=== PATIENT | female | born 1975 | race Caucasian/White ===

== ENCOUNTER 2016-12-11 18:20 | Emergency (ER) | payer BC ==
[~2016-12-11] VITALS: Ht 170.2 cm; Wt 65.8 kg
--- NOTE | 2016-12-11 19:05 | ED Lower Extremity ---
General Chief Complaint: Lower Extremity Stated Complaint: R FOOT PAIN FROM FALL Source: patient Exam Limitations: no limitations History of Present Illness Time seen by provider: 19:04 Initial Comments To ER with right ankle pain after she fell off of her porch at home twisting her ankle on the way down and caught in the bushes. She's been unable to bear weight on this since this happened. Pain is only ankle. There is no pain in the foot or in the knee. Onset: just prior to arrival Severity: moderate Pain/Injury Location: right ankle Method of Injury: fell, twisted Modifying Factors: Worse With Movement Allergies and Home Medications Allergies Coded Allergies: Morphine (Unverified Allergy, Mild, 12/06/08) Home Medications Thyroid,Pork 130 Mg Tablet, (Reported) Constitutional: see HPI EENTM: see HPI Respiratory: no symptoms reported Cardiovascular: no symptoms reported Genitourinary: no symptoms reported Musculoskeletal: see HPI Skin: no symptoms reported Psychiatric/Neurological: No Symptoms Reported Past Oguqdsf-Yvmcbq-Pnpfll Hx Patient Social History Recent Foreign Travel: No Contact w/Someone Who Travel: No Reproductive System Hx Reproductive Disorders: No Physical Exam Vital Signs Vital Sign - Last 12Hours 12/11/16 18:55 Temp 97.0 Pulse 95 Resp 20 B/P (MAP) 121/88 Pulse Ox 100 O2 Delivery Room Air Capillary Refill : General Appearance: WD/WN, no apparent distress HEENT: PERRL/EOMI, normal ENT inspection Neck: non-tender, full range of motion Respiratory: no respiratory distress, no accessory muscle use Hips: bilateral hip non-tender, bilateral hip normal inspection, bilateral hip normal range of motion Legs: bilateral leg non-tender, bilateral leg normal inspection, bilateral leg normal range of motion Knees: bilateral knee non-tender, bilateral knee normal inspection, bilateral knee normal range of motion Ankles: right ankle pain, right ankle soft tissue tenderness, right ankle swelling Feet: bilateral foot non-tender, bilateral foot normal inspection, bilateral foot normal range of motion Neurologic/Psychiatric: alert, normal mood/affect, oriented x 3 Skin: normal color, warm/dry Comments Distally she is neurovascularly intact Progress/Results/Core Measures Results/Orders My Orders Orders - WADE CHADWICK APRN Ankle, Right, 3 Views (12/11/16 19:08) Vital Signs/I&O Vital Sign - Last 12Hours 12/11/16 18:55 Temp 97.0 Pulse 95 Resp 20 B/P (MAP) 121/88 Pulse Ox 100 O2 Delivery Room Air Departure Impression Impression: Primary Impression: Ankle sprain Qualified Codes: S93.401A - Sprain of unspecified ligament of right ankle, initial encounter Disposition: 01 HOME, SELF-CARE Condition: Stable Departure-Patient Inst. Decision time for Depature: 19:27 Referrals: GEOVANNA VIDAL DO (PCP) Primary Care Physician CADE DEAN DO (Family) Primary Care Physician Patient Instructions: Ankle Sprain (DC) Add. Discharge Instructions: 1. Rest, limit weightbearing. It hurts to bear weight and use crutches when walking. When you feel as though your able to bear weight on your left foot without pain in the ankle and you may do so. Expect some swelling and bruising over the next 24-48 hours. Elevating the ankle, use of an tito wrap, and Ice pack will help with this. If pain persists beyond 1.5-2 weeks then follow up with Dr Vidal to discusse an MRI to further evaluate the ankle. Take tylenol and motrin for pain and return to ER for any concerning symptoms. Wear the tito wrap for a minimum of 48 hours and use an ice pack at 30 minute intervals for that same duration. All discharge instructions reviewed with patient and/or family. Voiced understanding. Copy Copies To 1: GEOVANNA VIDAL PETER J APRN Dec 11, 2016 19:05
[2016-12-11] MEDS ORDERED: THYR130T5 (19:11)
--- NOTE | 2016-12-11 19:14 | Diagnostic Imaging Report ---
INDICATION: Fall. FINDINGS: There is mild soft tissue swelling of the lateral malleolus. Ankle mortise is in good alignment. Articulating surfaces are smooth. Joint spaces are well-preserved. There are no fractures. IMPRESSION: Mild soft tissue swelling with no bony abnormality. Dictated by: Dictated on workstation # [id number]
[2016-12-11 19:50] VITALS: BP 121/88
== END 2016-12-11 19:50 | disposition home or self-care (01) ==
LOC: EDUNIT# 18:20 → ER 18:22
DX: S93.401A Sprain of unspecified ligament of right ankle, initial encounter (principal); W13.9XXA Fall from, out of or through building, not otherwise specified, initial encounter; X50.0XXA Overexertion from strenuous movement or load, initial encounter; Y92.008 Other place in unspecified non-institutional (private) residence as the place of occurrence of the external cause
CPT/HCPCS: 73610; 99283

== ENCOUNTER 2017-01-11 18:41 | Observation (INO) | payer BC ==
[~2017-01-11] VITALS: Ht 170.2 cm; Wt 74.4 kg
[~2017-01-11 18:41] MED LIST: THYR130T5 PO
[2017-01-11] MEDS ORDERED: NS IV 1000 ML 1,000 ML IV ONE ×3 (19:16→21:08)
[2017-01-11] MEDS ORDERED: KETOROLAC 30 MG/ML VIAL IVP STA (19:16)
--- NOTE | 2017-01-11 19:26 | ED General ---
General Chief Complaint: Fever-Adult/Adol Stated Complaint: FEVER Nursing Triage Note: PT HERE WITH C/O FEVER, N/V/ FOR 2 DAYS. FEVERS OF 102-103, NO URINE OUTPUT FOR 22 HOURS, PT REPORTS TRAVELING OVER 1600 MILES THIS WEEK IN A CAR. Nursing Sepsis Screen: Possible Sepsis Risk Source of Information: Patient Exam Limitations: No Limitations History of Present Illness Time Seen by Provider: 19:11 Initial Comments Here with report of fever with nausea and vomiting over the last 24-48 hours. States that she has not been him to keep anything down. She has not urinated since last night. Has had a lot of travel this week. Within the last 2 weeks has been out of the country as well. She has not had her flu shot this year. Denies specific pain but does complain of generalized body aches with the fever. She was unable to keep Tylenol down tonight. Denies diarrhea. Timing/Duration: 1-2 Days Severity: Moderate Associated Systoms: No Chest Pain, Cough (mild intermittent), Fever/Chills, No Headaches, Nausea/Vomiting, No Shortness of Air, Weakness Allergies and Home Medications Allergies Coded Allergies: Morphine (Unverified Allergy, Mild, 12/06/08) Home Medications Thyroid,Pork 130 Mg Tablet, (Reported) Constitutional: see HPI, chills, fever EENTM: no symptoms reported Respiratory: cough, No short of breath Cardiovascular: no symptoms reported Gastrointestinal: diarrhea, nausea, vomiting Genitourinary: decreased output, No pain : No LMP: Jan 06, 2017 Musculoskeletal: muscle pain, muscle weakness Skin: no symptoms reported All Other Systems Reviewed Negative Unless Noted: Yes Past Jitymep-Wnuybs-Gnpzfl Hx Patient Social History Alcohol Use: Denies Use Recreational Drug Use: No Smoking Status: Never a Smoker 2nd Hand Smoke Exposure: No Recent Foreign Travel: No Contact w/Someone Who Travel: No Recent Infectious Disease Expo: No Recent Hopitalizations: No Seasonal Allergies Seasonal Allergies: No Surgeries History of Surgeries: Yes (arm fx) Surgeries: Adenoidectomy, Gallbladder, Orthopedic, Tonsillectomy Respiratory History of Respiratory Disorde: No Cardiovascular History of Cardiac Disorders: No Neurological History of Neurological Disord: No Reproductive System Hx Reproductive Disorders: No Genitourinary History of Genitourinary Disor: No Gastrointestinal History of Gastrointestinal Di: No Musculoskeletal History of Musculoskeletal Dis: No Endocrine History of Endocrine Disorders: Yes Endocrine Disorders: Hypothyroidsim HEENT History of HEENT Disorders: No Cancer History of Cancer: No Psychosocial History of Psychiatric Problem: No Blood Transfusions History of Blood Disorders: No Reviewed Nursing Assessment Reviewed/Agree w Nursing PMH: Yes Family Medical History Significant Family History: No Pertinent Family Hx Physical Exam-Suspected Sepsis Physical Exam Vital Signs Vital Sign - Last 12Hours 01/11/17 18:59 Temp 98.8 Pulse 110 Resp 16 B/P (MAP) 123/79 Pulse Ox 98 O2 Delivery Room Air Capillary Refill : Less Than 3 Seconds Blood Pressure Mean: 94 General Appearance: No Apparent Distress, WD/WN HEENT: PERRL/EOMI, Pharynx Normal Neck: Non Tender, Supple Respiratory: Lungs Clear, Normal Breath Sounds Cardiovascular: No Murmur, Tachycardia Gastrointestinal: Non Tender, Soft Back: Normal Inspection, No CVA Tenderness, No Vertebral Tenderness Extremity: Normal Range of Motion, Non Tender Neurologic/Psychiatric: Alert, Oriented x3 Skin: normal color, warm/dry Focused Exam Evaluation Lactate Level Laboratory Tests 01/11/17 20:05: Lactic Acid Level 1.27 Lactic Acid Level Laboratory Tests Test 01/11/17 20:05 Lactic Acid Level 1.27 MMOL/L (0.50-2.00) Progress/Results/Core Measures Suspected Sepsis Recent Fever Within 48 Hours: Yes Infection Criteria Present: Suspected New Infection New/Unexplained Altered Menta: No Sepsis Screen: Possible Sepsis Risk Sepsis Diagnosis: SIRS Temperature:98.8 Pulse: 110 Respiratory Rate: 16 Laboratory Tests 01/11/17 19:25: White Blood Count 8.9 Blood Pressure 123 /79 Mean: 94 Laboratory Tests 01/11/17 20:05: Lactic Acid Level 1.27 Laboratory Tests 01/11/17 19:25: Creatinine 0.77, Platelet Count 240, Total Bilirubin 0.7 01/11/17 20:05: INR Comment 0.9 Results/Orders Lab Results Laboratory Tests Test 01/11/17 19:25 01/11/17 20:05 01/11/17 21:50 Range/Units White Blood Count 8.9 4.3-11.0 10^3/uL Red Blood Count 4.92 4.35-5.85 10^6/uL Hemoglobin 14.8 11.5-16.0 G/DL Hematocrit 43 35-52 % Mean Corpuscular Volume 87 80-99 FL Mean Corpuscular Hemoglobin 30 25-34 PG Mean Corpuscular Hemoglobin Concent 35 32-36 G/DL Red Cell Distribution Width 12.5 10.0-14.5 % Platelet Count 240 130-400 10^3/uL Mean Platelet Volume 9.5 7.4-10.4 FL Neutrophils (%) (Auto) 90 H 42-75 % Lymphocytes (%) (Auto) 6 L 12-44 % Monocytes (%) (Auto) 4 0-12 % Eosinophils (%) (Auto) 0 0-10 % Basophils (%) (Auto) 0 0-10 % Neutrophils # (Auto) 8.0 H 1.8-7.8 X 10^3 Lymphocytes # (Auto) 0.5 L 1.0-4.0 X 10^3 Monocytes # (Auto) 0.4 0.0-1.0 X 10^3 Eosinophils # (Auto) 0.0 0.0-0.3 10^3/uL Basophils # (Auto) 0.0 0.0-0.1 10^3/uL Neutrophils % (Manual) 70 % Lymphocytes % (Manual) 8 % Monocytes % (Manual) 0 % Eosinophils % (Manual) 0 % Basophils % (Manual) 0 % Band Neutrophils 22 % Blood Morphology Comment NORMAL Sodium Level 138 135-145 MMOL/L Potassium Level 3.8 3.6-5.0 MMOL/L Chloride Level 102 98-107 MMOL/L Carbon Dioxide Level 25 21-32 MMOL/L Anion Gap 11 5-14 MMOL/L Blood Urea Nitrogen 17 7-18 MG/DL Creatinine 0.77 0.60-1.30 MG/DL Estimat Glomerular Filtration Rate > 60 BUN/Creatinine Ratio 22 Glucose Level 89 70-105 MG/DL Calcium Level 8.9 8.5-10.1 MG/DL Total Bilirubin 0.7 0.1-1.0 MG/DL Aspartate Amino Transf (AST/SGOT) 83 H 5-34 U/L Alanine Aminotransferase (ALT/SGPT) 182 H 0-55 U/L Alkaline Phosphatase 128 40-136 U/L Total Protein 6.3 L 6.4-8.2 GM/DL Albumin 3.8 3.2-4.5 GM/DL Thyroid Stimulating Hormone (TSH) 0.26 L 0.35-4.94 UIU/ML Free Thyroxine 0.64 L 0.70-1.48 NG/DL Serum Test, Qualitative NEGATIVE NEGATIVE Prothrombin Time 11.8 L 12.2-14.7 SEC INR Comment 0.9 0.8-1.4 Activated Partial Thromboplast Time 26 24-35 SEC Lactic Acid Level 1.27 0.50-2.00 MMOL/L Urine Color YELLOW Urine Clarity VERY CLOUDY H Urine pH 6 5-9 Urine Specific [place] 1.020 1.016-1.022 Urine Protein NEGATIVE NEGATIVE Urine Glucose (UA) NEGATIVE NEGATIVE Urine Ketones NEGATIVE NEGATIVE Urine Nitrite NEGATIVE NEGATIVE Urine Bilirubin NEGATIVE NEGATIVE Urine Urobilinogen 1 NORMAL MG/DL Urine Leukocyte Esterase 3+ H NEGATIVE Urine RBC (Auto) 1+ H NEGATIVE Urine RBC 2-5 H /HPF Urine WBC 5-10 H /HPF Urine Squamous Epithelial Cells >50 H /HPF Urine Crystals NONE /LPF Urine Bacteria LARGE H /HPF Urine Casts NONE /LPF Urine Mucus NEGATIVE /LPF Urine Culture Indicated YES Micro Results Microbiology 01/11/17 Influenza Types A,B Antigen (WINNIE) - Final, Complete My Orders Orders - ALBERT MOON MD Cbc With Automated Diff (01/11/17 19:16) Comprehensive Metabolic Panel (01/11/17 19:16) Lactic Acid Analyzer (01/11/17 19:16) Blood Culture (01/11/17 19:16) Sputum Culture (01/11/17 19:16) Ua Culture If Indicated (01/11/17 19:16) Protime With Inr (01/11/17 19:16) Partial Thromboplastin Time (01/11/17 19:16) Chest 1 View, Ap/Pa Only (01/11/17 19:16) O2 (01/11/17 19:16) Saline Lock/Iv-Start (01/11/17 19:16) Vital Signs Adult Sepsis Patie Q1H (01/11/17 19:16) Remove Rings In Anticipation O (01/11/17 19:16) Influenza A And B Antigens (01/11/17 19:16) Ns Iv 1000 Ml (Sodium Chloride 0.9%) (01/11/17 19:16) Ketorolac Injection (Toradol Injection) (01/11/17 19:16) Hcg,Qualitative Serum (01/11/17 19:16) Ondansetron Injection (Zofran Injectio (01/11/17 19:30) Manual Differential (01/11/17 19:25) Ns Iv 1000 Ml (Sodium Chloride 0.9%) (01/11/17 20:16) Thyroid Stimulating Hormone (01/11/17 20:17) Ns Iv 1000 Ml (Sodium Chloride 0.9%) (01/11/17 21:08) Free T4 (Free Thyroxine) (01/11/17 21:09) Acetaminophen Tablet (Tylenol Tablet) (01/11/17 21:16) Urine Culture (01/11/17 21:50) Ondansetron Injection (Zofran Injectio (01/11/17 22:30) Ceftriaxone Injection (Rocephin Injectio (01/11/17 22:30) Ct Abd/Pelv W (Appendicitis) (01/11/17 22:24) Iohexol Injection (Omnipaque 350 Mg/Ml 1 (01/11/17 23:15) Sodium Chloride Flush (Catheter Flush Sy (01/11/17 23:15) Fentanyl Injection (Sublimaze Injection (01/11/17 23:17) Medications Given in ED Current Medications Medications Dose Ordered Sig/Héctor Route Start Time Stop Time Status Last Admin Dose Admin Ceftriaxone Sodium 1000 mg/ Sodium Chloride 50 ml @ 100 mls/hr ONCE ONCE IV 01/11/17 22:30 01/11/17 22:59 DC 01/11/17 22:30 100 MLS/HR Ondansetron HCl 4 mg ONCE ONCE IVP 01/11/17 19:30 01/11/17 19:31 DC 01/11/17 19:33 4 MG Ondansetron HCl 4 mg ONCE ONCE IVP 01/11/17 22:30 01/11/17 22:31 DC 01/11/17 22:30 4 MG Sodium Chloride 1,000 ml @ 0 mls/hr Q0M ONCE IV 01/11/17 19:16 01/11/17 19:19 DC 01/11/17 19:33 0 MLS/HR Sodium Chloride 1,000 ml @ 0 mls/hr Q0M ONCE IV 01/11/17 20:16 01/11/17 20:18 DC 01/11/17 20:19 0 MLS/HR Sodium Chloride 1,000 ml @ 0 mls/hr Q0M ONCE IV 01/11/17 21:08 01/11/17 21:10 DC 01/11/17 21:11 0 MLS/HR Vital Signs/I&O Vital Sign - Last 12Hours 01/11/17 01/11/17 01/11/17 01/11/17 18:59 19:25 19:34 20:22 Temp 98.8 98.8 98.5 Pulse 110 96 Resp 16 18 B/P (MAP) 123/79 Pulse Ox 98 98 100 O2 Delivery Room Air Room Air Room Air 01/11/17 01/11/17 21:30 23:41 Temp 98.5 98.8 Pulse 89 96 Resp 16 14 B/P (MAP) 101/75 Pulse Ox 98 96 O2 Delivery Room Air Room Air Capillary Refill : Less Than 3 Seconds Blood Pressure Mean: 94 Progress Note : Progress Note Seen and evaluated. IV, labs, UA, chest x-ray, influenza screen, blood cultures , lactic acid, normal saline 1 L bolus, Toradol 30 mg IV and Zofran 4 mg IV ordered. Monitor patient. Repeat normal saline 1 L bolus as patient has not yet urinated. Third liter of normal saline ordered after patient still could not urinate. Bladder scanner shows bladder at 26 mL. 2225: CT abdomen and pelvis appendicitis protocol ordered. Dr. Grant paged his pain is still persisting. UA is now obtained and question urinary tract infection. Patient does have a fairly significant left shift. Rocephin 1 g IV has been ordered. 2240: Discussed case with Dr. Grant and she accepts patient for admission, observation status. 2315: CT complete. Pain is now localized to the abdomen and back. Fentanyl 50 g IV ordered. We will admit the patient, observation status. Pending CT read. Diagnostic Imaging Diagonstic Imaging: Xray Plain Films/CT/US/NM/MRI: chest Comments VIA [facility], [facility]. [place], [place] NAME: EFRAÍN SYKES [facility] REC#: [id number] PT STATUS: REG ER : 1975 PHYSICIAN: ALBERT MOON MD ADMIT DATE: 01/11/17/ER Draft Date of Exam:01/11/17 CHEST 1 VIEW, AP/PA ONLY Portable erect AP chest at 744 hours. INDICATION: Fever. There are no prior studies available for comparison. FINDINGS: The heart size is within normal limits. The lungs are clear. There is no evidence for failure, pneumonia or for pleural effusion. Mediastinum is not widened. The osseous structures are intact. There is deformity of the left clavicle due to prior trauma. IMPRESSION: There is no evidence for an acute cardiopulmonary abnormality. Dictated on workstation # [id number] Dict: 01/11/171949 Trans: 01/11/171953 [id number] Interpreted by: JOSE LUIS HERNÁNDEZ MD Electronically signed by: [facility]: CT Plain Films/CT/US/NM/MRI: abdomen, pelvis Comments Findings suspicious for enteritis. No definite obstruction throughout the though there are some mildly distended small bowel segments. There are some nonspecific areas of decreased attenuation in the kidneys was somewhat straighter appearance the left kidney images 47 and 58. Correlate for any evidence of pyelonephritis. Reviewed: Reviewed Night [facility] Study Departure Communication (Admissions) Time/Spoke to Admitting Phy: 22:40 Impression Impression: Primary Impression: Fever Qualified Codes: R50.9 - Fever, unspecified Additional Impressions: Nausea and vomiting Qualified Codes: R11.2 - Nausea with vomiting, unspecified Body aches Dehydration Urinary tract infection Qualified Codes: N30.00 - Acute cystitis without hematuria Disposition: ADMITTED INPATIENT Condition: Stable Admissions Decision to Admit Reason: Admit from ER (General) Decision to Admit/Date: Jan 11, 2017 Time/Decision to Admit Time: 22:40 Departure-Patient Inst. Referrals: GEOVANNA GRANT DO (PCP) Primary Care Physician CADE DEAN DO (Family) Primary Care Physician ALBERT MOON MD Jan 11, 2017 19:26
[2017-01-11] MEDS ORDERED: ONDANSETRON 4 MG/2 ML (SDV) Z0FRAN IVP ONE ×2 (19:30→22:30)
[2017-01-11 19:45] LABS: BASOPHILS % (AUTO) 0 % (0-10); EOSINOPHILS % (AUTO) 0 % (0-10); LYMPHOCYTES # (AUTO) 0.5 X 10^3 (1.0-4.0); LYMPHOCYTES % (AUTO) 6 % (12-44); MEAN CORPUSCULAR HEMOGLOBIN 30 PG (25-34); MEAN CORPUSCULAR HGB CONC 35 G/DL (32-36); MEAN CORPUSCULAR VOLUME 87 FL (80-99); MEAN PLATELET VOLUME 9.5 FL (7.4-10.4); MONOCYTES # (AUTO) 0.4 X 10^3 (0.0-1.0); MONOCYTES % (AUTO) 4 % (0-12); NEUTROPHILS % (AUTO) 90 % (42-75); PLATELET COUNT 240 10^3/uL (130-400); RED BLOOD COUNT 4.92 10^6/uL (4.35-5.85); RED CELL DISTRIBUTION WIDTH 12.5 % (10.0-14.5); WHITE BLOOD COUNT 8.9 10^3/uL (4.3-11.0)
--- NOTE | 2017-01-11 19:54 | Diagnostic Imaging Report ---
Portable erect AP chest at 744 hours. INDICATION: Fever. There are no prior studies available for comparison. FINDINGS: The heart size is within normal limits. The lungs are clear. There is no evidence for failure, pneumonia or for pleural effusion. Mediastinum is not widened. The osseous structures are intact. There is deformity of the left clavicle due to prior trauma. IMPRESSION: There is no evidence for an acute cardiopulmonary abnormality. Dictated by: Dictated on workstation # [id number]
[2017-01-11 19:59] LABS: ALANINE AMINOTRANSFERASE 182 U/L (0-55); ALBUMIN 3.8 GM/DL (3.2-4.5); ANION GAP 11 MMOL/L (5-14); ASPARTATE AMINO TRANSFERASE 83 U/L (5-34); BILIRUBIN,TOTAL 0.7 MG/DL (0.1-1.0); BLOOD UREA NITROGEN 17 MG/DL (7-18); BUN/CREATININE RATIO 22; CALCIUM 8.9 MG/DL (8.5-10.1); CARBON DIOXIDE 25 MMOL/L (21-32); CHLORIDE 102 MMOL/L (98-107); CREATININE SERUM 0.77 MG/DL (0.60-1.30); GFR ESTIMATED > 60; GLUCOSE 89 MG/DL (70-105); POTASSIUM 3.8 MMOL/L (3.6-5.0); SODIUM 138 MMOL/L (135-145); TOTAL PROTEIN 6.3 GM/DL (6.4-8.2)
[2017-01-11 20:15] LABS: BAND NEUTROPHILS 22 %; BASOPHILS % (MANUAL) 0 %; EOSINOPHILS % (MANUAL) 0 %; LYMPHOCYTES % (MANUAL) 8 %; NEUTROPHILS % (MANUAL) 70 %
[2017-01-11 20:29] LABS: INR 0.9 (0.8-1.4); PROTHROMBIN TIME PATIENT 11.8 SEC (12.2-14.7)
[2017-01-11] MEDS ORDERED: ACETAMINOPHEN 500 MG TAB (TYLENOL) PO STA (21:16)
[2017-01-11 21:30] VITALS: BP 101/75
[2017-01-11 21:54] LABS: BILIRUBIN,URINE NEGATIVE (NEGATIVE); KETONES,URINE NEGATIVE (NEGATIVE); LEUKOCYTE ESTERASE ,URINE 3+ (NEGATIVE); NITRITE,URINE NEGATIVE (NEGATIVE); PH,URINE 6 (5-9); PROTEIN,URINE NEGATIVE (NEGATIVE); UROBILINOGEN,URINE 1 MG/DL (NORMAL)
[2017-01-11 22:03] LABS: SQUAMOUS EPITHELIAL CELL,UR >50 /HPF
[2017-01-11] MEDS ORDERED: cefTRIAXone INJECTION 1,000 MG in NS (IVPB) 50 ML IV ONE (22:30)
[2017-01-11] MEDS ORDERED: IOHEXOL 350 MG/ML 100 ML (OMNIPAQUE 350) VIAL IV ONE (23:15)
[2017-01-11] MEDS ORDERED: CATHETER FLUSH 10 ML SYR IV PRN (23:15)
[2017-01-11] MEDS ORDERED: fentaNYL INJECTION 100 MCG/2 ML AMP IVP STA (23:17)
[2017-01-12 00:05] VITALS: BP 99/61
[2017-01-12] MEDS ORDERED: NS IV 1000 ML 1,000 ML ONE (00:16)
[2017-01-12 03:25] VITALS: BP 90/64
[2017-01-12] MEDS ORDERED: CATHETER FLUSH 10 ML SYR IV PRN (04:30)
[2017-01-12] MEDS ORDERED: ONDANSETRON 4 MG/2 ML (SDV) Z0FRAN IV PRN (04:30)
[2017-01-12] MEDS ORDERED: KETOROLAC 15 MG/ML VIAL IV PRN (04:30)
[2017-01-12] MEDS ORDERED: ACETAMINOPHEN 500 MG TAB (TYLENOL) PO PRN (04:30)
[2017-01-12] MEDS: NS IV 1000 ML 1,000 ML IV SCH ×3 (05:51→16:15)
[2017-01-12] MEDS: CATHETER FLUSH 10 ML SYR IV SCH ×2 (06:03→14:04)
--- NOTE | 2017-01-12 06:59 | Diagnostic Imaging Report ---
PROCEDURE: CT abdomen and pelvis with contrast, rule out appendicitis. TECHNIQUE: Multiple contiguous axial images were obtained through the abdomen and pelvis after the administration of intravenous contrast. INDICATION: Febrile. Abdominal pain with nausea and vomiting x2 days. History of cholecystectomy. Comparison with 12/09/2008. FINDINGS: Lung bases are clear. Liver appears normal. Gallbladder is absent. Bile ducts are not dilated. The pancreas and spleen are normal. The adrenal glands are normal. Kidneys show no evidence of obstruction. Contrasted images only exclude evaluation for calculi. There are no renal masses. The preliminary report described striated enhancement on the nephrogram effect of the kidneys. This is a subtle finding. There is no perinephric edema or thickening of Gerota's fascia. The appendix is not dilated. No appendicoliths are present. There is normal enhancement of the abdominal organs following IV contrast. The stomach is not distended. There are fluid-filled loops of small bowel which are mildly distended throughout the abdomen. There is no definite transition point. Colon shows normal stool and gas pattern. There is no free air or free fluid. No pelvic mass. Uterus appears normal. There are no bony abnormalities. IMPRESSION: 1. Fluid-filled small bowel which is mildly distended likely representing enteritis. No definite small bowel obstruction demonstrated. 2. Questionable striation of the right kidney following IV contrast. Rule out UTI. 3. Appendix is normal. These findings are concordant with the preliminary report. Dictated by: Dictated on workstation # [id number]
[2017-01-12 07:15] LABS: BASOPHILS % (AUTO) 0 % (0-10); EOSINOPHILS # (AUTO) 0.1 10^3/uL (0.0-0.3); EOSINOPHILS % (AUTO) 1 % (0-10); LYMPHOCYTES # (AUTO) 0.9 X 10^3 (1.0-4.0); LYMPHOCYTES % (AUTO) 16 % (12-44); MEAN CORPUSCULAR HEMOGLOBIN 30 PG (25-34); MEAN CORPUSCULAR HGB CONC 34 G/DL (32-36); MEAN CORPUSCULAR VOLUME 88 FL (80-99); MEAN PLATELET VOLUME 9.2 FL (7.4-10.4); MONOCYTES # (AUTO) 0.4 X 10^3 (0.0-1.0); MONOCYTES % (AUTO) 7 % (0-12); NEUTROPHILS # (AUTO) 4.4 X 10^3 (1.8-7.8); NEUTROPHILS % (AUTO) 76 % (42-75); PLATELET COUNT 218 10^3/uL (130-400); RED CELL DISTRIBUTION WIDTH 12.4 % (10.0-14.5); WHITE BLOOD COUNT 5.8 10^3/uL (4.3-11.0)
[2017-01-12] MEDS ORDERED: INFLUENZA TRIvalent 2017-2018 0.5 ML/45 MCG SYR IM ONE (07:30)
[2017-01-12 07:37] LABS: ALANINE AMINOTRANSFERASE 146 U/L (0-55); ALBUMIN 2.8 GM/DL (3.2-4.5); ANION GAP 6 MMOL/L (5-14); ASPARTATE AMINO TRANSFERASE 72 U/L (5-34); BILIRUBIN,TOTAL 0.5 MG/DL (0.1-1.0); BLOOD UREA NITROGEN 10 MG/DL (7-18); BUN/CREATININE RATIO 15; CALCIUM 7.2 MG/DL (8.5-10.1); CARBON DIOXIDE 23 MMOL/L (21-32); CHLORIDE 109 MMOL/L (98-107); CREATININE SERUM 0.65 MG/DL (0.60-1.30); GFR ESTIMATED > 60; GLUCOSE 88 MG/DL (70-105); POTASSIUM 3.4 MMOL/L (3.6-5.0); SODIUM 138 MMOL/L (135-145); TOTAL PROTEIN 4.8 GM/DL (6.4-8.2)
[2017-01-12 08:11] VITALS: BP 98/65
[2017-01-12] MEDS ORDERED: TRIA1TAB3 PO (08:49)
[2017-01-12] MEDS ORDERED: CYAN10006 PO (08:49)
[2017-01-12] MEDS ORDERED: CHOL10007 PO (08:49)
[2017-01-12 12:00] VITALS: BP 100/67
[2017-01-12 16:00] VITALS: BP 95/67
[2017-01-12] MEDS ORDERED: cefTRIAXone INJECTION 1,000 MG in NS (IVPB) 50 ML IV NR (17:15)
[2017-01-12] MEDS ORDERED: ONDA8TAB6 PO (17:21)
[2017-01-12] MEDS ORDERED: CEFU500T63 PO (17:22)
--- NOTE | 2017-01-12 17:25 | Discharge Inst-Simple/Standard ---
Discharge Inst-Standard Discharge Medications New, Converted or Re-Newed RX: Transmitted to Pharmacy Patient Instructions/Follow Up Plan of Care/Instructions/FU: Fwup 1 week Activity as Tolerated: Yes Discharge Diet: Regular Diet Other Inst to Patient Hold supplements and Triam/HCTZ until done with antibiotics GEOVANNA VIDAL DO Jan 12, 2017 17:25
--- NOTE | 2017-01-12 17:34 | History & Physicial ---
History of Present Illness History of Present Illness Reason for visit/HPI This is a 41 year old female who presented to the emergency room with a 2 day history of intractable nausea and vomiting. She was running a fever with body aches and abdominal pain and had not urinated for almost 24hrs. She required 3 liters of fluids in the emergency room before she was able to give a urine sampled. She also was given IV zofran but was still having ongoing nausea. Her urinalysis did show a UTI and her CT scan of the abdomen and pelvis showed enteritis with possible early pyelonephritis. It was decided she should be admitted for IVF rehydration, IV antiemetics and IV rocephin. Date of Admission Jan 11, 2017 at 10:39 pm Date Seen by Provider: Jan 12, 2017 Time Seen by Provider: 08:45 I consulted on this patient on 01/12/17 17:29 Attending Physician Zoe Grant DO Admitting Physician Zoe Grant DO Consult Allergies and Home Medications Allergies Coded Allergies: morphine (Unverified Allergy, Mild, 12/06/08) Home Medications Cefuroxime Axetil 500 Mg Tablet, 500 MG PO BID, #10 Prescribed by: ZOE GRANT on 01/12/17 1722 Ondansetron HCl 8 Mg Tablet, 8 MG PO Q6H, #20 Prescribed by: ZOE GRANT on 01/12/17 1721 Thyroid,Pork 130 Mg Tablet, 130 MG PO DAILY, (Reported) Past Plbflyi-Wzdnys-Dkaswh Hx Patient Social History Alcohol Use: Denies Use Recreational Drug Use: No Smoking Status: Never a Smoker 2nd Hand Smoke Exposure: No Physical Abuse Screen: No Sexual Abuse: No Recent Foreign Travel: Yes Contact w/other who traveled: Yes Recent Hopitalizations: No Recent Infectious Disease Expo: No Seasonal Allergies Seasonal Allergies: No Surgeries Yes (arm fx) Adenoidectomy, Gallbladder, Orthopedic, Tonsillectomy Respiratory No Cardiovascular No Neurological No Reproductive System Hx Reproductive Disorders: No Genitourinary No Gastrointestinal No Musculoskeletal No Endocrine History of Endocrine Disorders: Yes Endocrine Disorders: Hypothyroidsim HEENT History of HEENT Disorders: No Cancer No Psychosocial History of Psychiatric Problem: No Integumentary History of Skin or Integumenta: No Blood Transfusions History of Blood Disorders: No Reviewed Nursing Assessment Reviewed/Agree w Nursing PMH: Yes Family Medical History Significant Family History: No Pertinent Family Hx Constitutional: fever, weakness EENTM: No see HPI, No no symptoms reported, No ear discharge, No hearing loss, No ear pain, No blurred vision, No double vision, No eye pain, No tearing, No vision loss, No dental problems, No hoarseness, No mouth pain, No mouth swelling , No epistaxis, No nose congestion, No nose pain, No throat pain, No throat swelling, No other Respiratory: No no symptoms reported, No see HPI, No cough, No dyspnea on exertion, No hemoptysis, No orthopnea, No phlegm, No short of breath, No stridor , No wheezing, No other Cardiovascular: No no symptoms reported, No see HPI, No chest pain, No edema, No Hx of Intervention, No palpitations, No syncope, No vascular heart diseas, No other Gastrointestinal: RLQ, abdominal pain, loss of appetite, nausea, vomiting Genitourinary: decreased output Musculoskeletal: back pain (right sided) Skin: No no symptoms reported, No see HPI, No change in color, No change in hair/nails, No dryness, No hx of skin cancer, No lesions, No lumps, No pruritus , No rash, No other Psychiatric/Neurological: Weakness Physical Exam Vital Signs Vital Sign - Last 12Hours 01/11/17 18:59 Temp 98.8 Pulse 110 Resp 16 B/P (MAP) 123/79 Pulse Ox 98 O2 Delivery Room Air Capillary Refill : Less Than 3 Seconds General Appearance: No Apparent Distress HEENT: Pharynx Normal Neck: Supple Respiratory: Lungs Clear Gastrointestinal: Normal Bowel Sounds, Soft, Tenderness Back: CVA Tenderness (R) Extremity: Non Tender, No Calf Tenderness, No Pedal Edema Neurologic/Psychiatric: Alert, Oriented x3 Skin: Normal Color, Warm/Dry Comments Laboratory Tests 01/11/17 19:25: White Blood Count 8.9, Red Blood Count 4.92, Hemoglobin 14.8, Hematocrit 43, Mean Corpuscular Volume 87, Mean Corpuscular Hemoglobin 30, Mean Corpuscular Hemoglobin Concent 35, Red Cell Distribution Width 12.5, Platelet Count 240, Mean Platelet Volume 9.5, Neutrophils (%) (Auto) 90H, Lymphocytes (%) (Auto) 6L , Monocytes (%) (Auto) 4, Eosinophils (%) (Auto) 0, Basophils (%) (Auto) 0, Neutrophils # (Auto) 8.0H, Lymphocytes # (Auto) 0.5L, Monocytes # (Auto) 0.4, Eosinophils # (Auto) 0.0, Basophils # (Auto) 0.0, Neutrophils % (Manual) 70, Lymphocytes % (Manual) 8, Monocytes % (Manual) 0, Eosinophils % (Manual) 0, Basophils % (Manual) 0, Band Neutrophils 22, Blood Morphology Comment NORMAL, Sodium Level 138, Potassium Level 3.8, Chloride Level 102, Carbon Dioxide Level 25, Anion Gap 11, Blood Urea Nitrogen 17, Creatinine 0.77, Estimat Glomerular Filtration Rate > 60, BUN/Creatinine Ratio 22, Glucose Level 89, Calcium Level 8.9, Total Bilirubin 0.7, Aspartate Amino Transf (AST/SGOT) 83H, Alanine Aminotransferase (ALT/SGPT) 182H, Alkaline Phosphatase 128, Total Protein 6.3L, Albumin 3.8, Thyroid Stimulating Hormone (TSH) 0.26L, Free Thyroxine 0.64L, Serum Test, Qualitative NEGATIVE 01/11/17 20:05: Prothrombin Time 11.8L, INR Comment 0.9, Activated Partial Thromboplast Time 26 , Lactic Acid Level 1.27 01/11/17 21:50: Urine Color YELLOW, Urine Clarity VERY CLOUDYH, Urine pH 6, Urine Specific [place] 1.020, Urine Protein NEGATIVE, Urine Glucose (UA) NEGATIVE, Urine Ketones NEGATIVE, Urine Nitrite NEGATIVE, Urine Bilirubin NEGATIVE, Urine Urobilinogen 1, Urine Leukocyte Esterase 3+H, Urine RBC (Auto) 1+H, Urine RBC 2- 5H, Urine WBC 5-10H, Urine Squamous Epithelial Cells >50H, Urine Crystals NONE, Urine Bacteria LARGEH, Urine Casts NONE, Urine Mucus NEGATIVE, Urine Culture Indicated YES 01/12/17 06:43: White Blood Count 5.8, Red Blood Count 4.10L, Hemoglobin 12.1, Hematocrit 36, Mean Corpuscular Volume 88, Mean Corpuscular Hemoglobin 30, Mean Corpuscular Hemoglobin Concent 34, Red Cell Distribution Width 12.4, Platelet Count 218, Mean Platelet Volume 9.2, Neutrophils (%) (Auto) 76H, Lymphocytes (%) (Auto) 16 , Monocytes (%) (Auto) 7, Eosinophils (%) (Auto) 1, Basophils (%) (Auto) 0, Neutrophils # (Auto) 4.4, Lymphocytes # (Auto) 0.9L, Monocytes # (Auto) 0.4, Eosinophils # (Auto) 0.1, Basophils # (Auto) 0.0, Sodium Level 138, Potassium Level 3.4L, Chloride Level 109H, Carbon Dioxide Level 23, Anion Gap 6, Blood Urea Nitrogen 10, Creatinine 0.65, Estimat Glomerular Filtration Rate > 60, BUN/ Creatinine Ratio 15, Glucose Level 88, Calcium Level 7.2L, Total Bilirubin 0.5, Aspartate Amino Transf (AST/SGOT) 72H, Alanine Aminotransferase (ALT/SGPT) 146H , Alkaline Phosphatase 108, Total Protein 4.8L, Albumin 2.8L Microbiology 01/11/17 Blood Culture - Preliminary, Resulted No growth 01/11/17 Influenza Types A,B Antigen (WINNIE) - Final, Complete 01/11/17 Urine Culture - Preliminary, Resulted NO GROWTH Assessment/Plan Assessment and Plan 1. Acute Pyelonephritis--admit for IV rocephin 2. Acute Gastroenteritis with Intractable N/V and Dehydration--admit for IVF and IV antiemetics 3. Abnormal Thyroid Lab--patient getting thyroid from another physician--may be off some due to viral illness as well Problems: Clinical Quality Measures DVT/VTE Risk/Contraindication: Risk Factor Score Per Nursin RFS Level Per Nursing on Admit: 1=Low/No VTE PPX ZOE GRANT DO Jan 12, 2017 5:34 pm
[2017-01-12 20:35] VITALS: BP 105/72
[2017-01-12] MEDS ORDERED: cefTRIAXone 1 GM/NS 50 ML IVPB IV SCH ×2 (21:00)
[2017-01-13 00:11] VITALS: BP 107/70
[2017-01-13] MEDS: CATHETER FLUSH 10 ML SYR IV SCH (00:42)
[2017-01-13] MEDS: NS IV 1000 ML 1,000 ML IV SCH (01:29)
[2017-01-13 04:10] VITALS: BP 124/78
[2017-01-13 05:10] VITALS: BP 124/78
[2017-01-13 08:00] VITALS: BP 111/76
[2017-01-13] MEDS ORDERED: INFLUENZA TRIvalent 2017-2018 0.5 ML/45 MCG SYR IM ONE (08:34)
[2017-01-13 09:45] VITALS: BP 111/76
--- NOTE | 2017-01-14 15:05 | Discharge Summary ---
Diagnosis/Chief Complaint Date of Admission Jan 11, 2017 at 10:39 pm Date of Discharge Jan 13, 2017 at 9:19 am Discharge Date: Jan 13, 2017 Admission Diagnosis Admission Diagnosis 1. Acute Pyelonephritis--admit for IV rocephin 2. Acute Gastroenteritis with Intractable N/V and Dehydration--admit for IVF and IV antiemetics 3. Abnormal Thyroid Lab--patient getting thyroid from another physician--may be off some due to viral illness as well Discharge Diagnosis 1. Acute Pyelonephritis--right sided abdominal pain improving 2. Acute Gastroenteritis with Intractable N/V and Dehydration--improved 3. Abnormal Thyroid Lab--patient getting thyroid from another physician--may be off some due to viral illness as well Reason Hospital Visit This is a 41 year old female who presented to the emergency room with a 2 day history of intractable nausea and vomiting. She was running a fever with body aches and abdominal pain and had not urinated for almost 24hrs. She required 3 liters of fluids in the emergency room before she was able to give a urine sampled. She also was given IV zofran but was still having ongoing nausea. Her urinalysis did show a UTI and her CT scan of the abdomen and pelvis showed enteritis with possible early pyelonephritis. It was decided she should be admitted for IVF rehydration, IV antiemetics and IV rocephin. Discharge Summary Hospital Course Hospital Course This is a 41 year old female who presented to the emergency room with a 2 day history of intractable nausea and vomiting. She was running a fever with body aches and abdominal pain and had not urinated for almost 24hrs. She required 3 liters of fluids in the emergency room before she was able to give a urine sampled. She also was given IV zofran but was still having ongoing nausea. Her urinalysis did show a UTI and her CT scan of the abdomen and pelvis showed enteritis with possible early pyelonephritis. It was decided she should be admitted for IVF rehydration, IV antiemetics and IV rocephin. By the following hospital day her nausea was improved and she was tolerating clear liquids so her diet was advanced as tolerated. She tolerated the diet advancement with no increase in nausea. However, she continued to have right sided abdominal pain and despite aggressive IVF rehydration, she still had low urine output. It was decided to keep her one more day for further IVFs and further rocephin to june sure her pyelonephritis was properly treated. By the following hospital day, her right sided abdominal pain was improved and she was urinating more frequently and felt much better. It was decided she could be discharged home on oral antibiotics. She is instructed to hold her supplements and Triam/HCTZ which she only takes for swelling through the rest of the weekend then resume them Tuesday if she was feeling back to normal. Labs Laboratory Tests 01/11/17 19:25: Neutrophils (%) (Auto) 90H, Lymphocytes (%) (Auto) 6L, Neutrophils # (Auto) 8.0H , Lymphocytes # (Auto) 0.5L, Aspartate Amino Transf (AST/SGOT) 83H, Alanine Aminotransferase (ALT/SGPT) 182H, Total Protein 6.3L, Thyroid Stimulating Hormone (TSH) 0.26L, Free Thyroxine 0.64L 01/11/17 20:05: Prothrombin Time 11.8L 01/11/17 21:50: Urine Clarity VERY CLOUDYH, Urine Leukocyte Esterase 3+H, Urine RBC (Auto) 1+H, Urine RBC 2-5H, Urine WBC 5-10H, Urine Squamous Epithelial Cells >50H, Urine Bacteria LARGEH 01/12/17 06:43: Neutrophils (%) (Auto) 76H, Lymphocytes # (Auto) 0.9L, Aspartate Amino Transf ( AST/SGOT) 72H, Alanine Aminotransferase (ALT/SGPT) 146H, Total Protein 4.8L, Red Blood Count 4.10L, Potassium Level 3.4L, Chloride Level 109H, Calcium Level 7.2L, Albumin 2.8L Procedures None. Discharge Physical Examination Allergies: Coded Allergies: morphine (Unverified Allergy, Mild, 12/06/08) Vitals & I&Os Vital Signs Date Time Temp Pulse Resp B/P (MAP) Pulse Ox O2 Delivery O2 Flow Rate FiO2 01/13/17 09:45 62 14 111/76 98 Room Air 01/13/17 08:00 97.6 General Appearance: Alert, Oriented X3, Cooperative, No Acute Distress Respiratory: Clear to Auscultation Cardiovascular: Regular Rate Abdominal: Normal Bowel Sounds, Soft, No Tenderness Extremities: No Clubbing, No Cyanosis, No Edema Skin: No Rashes Psych/Mental Status: Mental Status NL, Mood NL Discharge Home Medications Reviewed and agree with Discharge Medication list on patient's Discharge Instruction sheet Instructions to Patient/Family Please see electronic discharge instructions given to patient. Clinical Quality Measures DVT/VTE Risk/Contraindication: Risk Factor Score Per Nursin RFS Level Per Nursing on Admit: 1=Low/No VTE PPX GEOVANNA VIDAL DO Jan 14, 2017 3:05 pm
== END 2017-01-13 09:19 | disposition home or self-care (01) ==
LOC: EDUNIT# 18:41 → ER 18:42 → 4TH 22:39
PROVIDERS: ADMIT Family Medicine; ATTEND Family Medicine
DX: N10 Acute pyelonephritis (principal); K52.9 Noninfective gastroenteritis and colitis, unspecified; E86.0 Dehydration; E03.9 Hypothyroidism, unspecified; Z79.899 Other long term (current) drug therapy; Z23 Encounter for immunization
CPT/HCPCS: 36415; 71010; 74177; 80053; 81000; 83605; 84439; 84443; 84703; 85007; 85025; 85027; 85610; 85730; 87040; 87088; 87804; G0378

== ENCOUNTER 2019-11-05 17:59 | Emergency (ER) | payer BC ==
[~2019-11-05] VITALS: Ht 170.1 cm; Wt 70.3 kg
[~2019-11-05 17:59] MED LIST changes: +CEFU500T63 PO; +CHOL10007 PO; +CYAN-41 PO; +ONDA8TAB6 PO; +TRIA1TAB3 PO
--- NOTE | 2019-11-05 18:54 | ED Abdominal Pain ---
General Chief Complaint: Abdominal/GI Problems Stated Complaint: ABD PAIN;BACK PAIN Source of Information: Patient History of Present Illness Date Seen by Provider: Nov 05, 2019 Time Seen by Provider: 18:35 Initial Comments PT ARRIVES VIA POV FROM HOME C/O RLQ PAIN AND RIGHT FLANK PAIN SINCE YESTERDAY PAIN IS WORSE TODAY PAIN IS WORSE WITH ANY MOVEMENTS, JARRING, ETC. DROVE HOME FROM TODAY AND PAIN WAS MUCH WORSE WITH CAR RIDE/BUMPS IN ROAD, ETC C/O NAUSEA, NO VOMITING. LAST BM 2 DAYS AGO--CONSTIPATED NO FEVER NO URINARY SYMPTOMS HAS NOT TAKEN ANYTHING FOR PAIN NO HISTORY OF SIMILAR LAST FOOD INTAKE WAS RICE AROUND NOON PT HAS HAD CHOLECYSTECTOMY, TUMMY TUCK, AND BTL LMP 10/20/19. NORMAL. PCP: Allergies and Home Medications Allergies Coded Allergies: morphine (Unverified Allergy, Mild, 12/06/08) Home Medications Cefuroxime Axetil 500 Mg Tablet, 500 MG PO BID Prescribed by: GEOVANNA VIDAL on 01/12/17 1722 Ondansetron HCl 8 Mg Tablet, 8 MG PO Q6H Prescribed by: GEOVANNA VIDAL on 01/12/17 1721 Thyroid,Pork 130 Mg Tablet, 130 MG PO DAILY, (Reported) Patient Home Medication List Home Medication List Reviewed: Yes Review of Systems Review of Systems Constitutional: no symptoms reported; No chills, No diaphoresis, No fever Respiratory: No Symptoms Reported Cardiovascular: No Symptoms Reported Gastrointestinal: See HPI, Abdominal Pain, Constipated, Nausea, Poor Appetite; Denies Vomiting Genitourinary: Denies Burning, Denies Discharge, Denies Drainage, Denies Frequency; Flank Pain; Denies Hematuria, Denies Pain, Denies Urgency Musculoskeletal: see HPI, back pain Skin: no symptoms reported; No rash Psychiatric/Neurological: No Symptoms Reported Endocrine: No Symptoms Reported Hematologic/Lymphatic: No Symptoms Reported Past Cnkjjgh-Pnqaxl-Ollmyn Hx Past Med/Social Hx: Reviewed and Corrections made Patient Social History Alcohol Use: Denies Use Recreational Drug Use: No Smoking Status: Never a Smoker 2nd Hand Smoke Exposure: No Recent Foreign Travel: No Contact w/Someone Who Travel: No Recent Hopitalizations: No Physical Abuse: No Sexual Abuse: No Mistreated: No Fear: No Seasonal Allergies Seasonal Allergies: No Past Medical History Surgeries: Yes (TUMMY TUCK/ABDOMINOPLASTY; ARM FX REPAIR) Adenoidectomy, Gallbladder, Orthopedic, Tonsillectomy, Tubal Ligation Respiratory: No Cardiac: No Neurological: No : No Reproductive Disorders: No SIGN LANGUAGE INTERPRETER History: Tubal Ligation Genitourinary: Yes Kidney Infection, Bladder Infection Gastrointestinal: Yes (S/P CHOLECYCTECTOMY) Gall Bladder Disease Musculoskeletal: Yes (ARM FRACTURE REPAIR) Fractures Endocrine: Yes Hypothyroidsim HEENT: No Cancer: No Psychosocial: No Integumentary: No Blood Disorders: No Family Medical History No Pertinent Family Hx Physical Exam Vital Signs Vital Signs - First Documented 11/05/19 18:30 Temp 36.4 Pulse 80 Resp 20 B/P (MAP) 125/94 (104) Pulse Ox 100 O2 Delivery Room Air Capillary Refill : Height/Weight/BMI Height: 5'7.00" Weight: 164lbs. 0.0oz. 74.665651cv; 25.5 BMI Method:Stated General Appearance: WD/WN, no apparent distress Neck: normal inspection Respiratory: normal breath sounds, no respiratory distress, no accessory muscle use Cardiovascular: regular rate, rhythm, no murmur Gastrointestinal: normal bowel sounds, soft, no organomegaly, no pulsatile mass; No distended, No guarding; rebound (EQUIVOCAL), tenderness (MODERATE RLQ TENDERNESS, MILD RIGHT FLANK AND SUPRAPUBIC TENDERNESS); No hernia, No mass Extremities: normal inspection Back: no vertebral tenderness, CVA tenderness (R) Neurologic/Psychiatric: preventive medicine specialist II-XII nml as tested, no motor/sensory deficits, alert, normal mood/affect, oriented x 3 Skin: normal color, warm/dry; No rash Progress/Results/Core Measures Results/Orders Lab Results Laboratory Tests Test 11/05/19 18:30 11/05/19 18:40 Range/Units Urine Color YELLOW Urine Clarity SL CLOUDY Urine pH 7.0 5-9 Urine Specific [place] 1.015 L 1.016-1.022 Urine Protein NEGATIVE NEGATIVE Urine Glucose (UA) NEGATIVE NEGATIVE Urine Ketones NEGATIVE NEGATIVE Urine Nitrite NEGATIVE NEGATIVE Urine Bilirubin NEGATIVE NEGATIVE Urine Urobilinogen 1.0 < = 1.0 MG/DL Urine Leukocyte Esterase 2+ H NEGATIVE Urine RBC (Auto) TRACE-I NEGATIVE Urine RBC 0-2 /HPF Urine WBC 25-50 H /HPF Urine Crystals NONE /LPF Urine Bacteria LARGE H /HPF Urine Casts NONE /LPF Urine Mucus NEGATIVE /LPF Urine Culture Indicated YES White Blood Count 8.1 4.3-11.0 10^3/uL Red Blood Count 5.15 4.35-5.85 10^6/uL Hemoglobin 15.2 11.5-16.0 G/DL Hematocrit 45 35-52 % Mean Corpuscular Volume 87 80-99 FL Mean Corpuscular Hemoglobin 30 25-34 PG Mean Corpuscular Hemoglobin Concent 34 32-36 G/DL Red Cell Distribution Width 12.9 10.0-14.5 % Platelet Count 330 130-400 10^3/uL Mean Platelet Volume 8.8 7.4-10.4 FL Neutrophils (%) (Auto) 51 42-75 % Lymphocytes (%) (Auto) 37 12-44 % Monocytes (%) (Auto) 10 0-12 % Eosinophils (%) (Auto) 2 0-10 % Basophils (%) (Auto) 0 0-10 % Neutrophils # (Auto) 4.1 1.8-7.8 X 10^3 Lymphocytes # (Auto) 3.0 1.0-4.0 X 10^3 Monocytes # (Auto) 0.8 0.0-1.0 X 10^3 Eosinophils # (Auto) 0.1 0.0-0.3 10^3/uL Basophils # (Auto) 0.0 0.0-0.1 10^3/uL Sodium Level 140 135-145 MMOL/L Potassium Level 3.5 L 3.6-5.0 MMOL/L Chloride Level 103 98-107 MMOL/L Carbon Dioxide Level 27 21-32 MMOL/L Anion Gap 10 5-14 MMOL/L Blood Urea Nitrogen 22 H 7-18 MG/DL Creatinine 0.98 0.60-1.30 MG/DL Estimat Glomerular Filtration Rate > 60 BUN/Creatinine Ratio 22 Glucose Level 81 70-105 MG/DL Calcium Level 8.8 8.5-10.1 MG/DL Corrected Calcium 8.6 8.5-10.1 MG/DL Total Bilirubin 0.2 0.1-1.0 MG/DL Aspartate Amino Transf (AST/SGOT) 57 H 5-34 U/L Alanine Aminotransferase (ALT/SGPT) 94 H 0-55 U/L Alkaline Phosphatase 96 40-136 U/L Total Protein 7.1 6.4-8.2 GM/DL Albumin 4.3 3.2-4.5 GM/DL Amylase Level 48 25-125 U/L Lipase 51 8-78 U/L My Orders Orders - KARAN BOSS DO Ed Iv/Invasive Line Start (11/05/19 18:36) Urine Bedside (11/05/19 18:36) Amylase (11/05/19 18:36) Cbc With Automated Diff (11/05/19 18:36) Comprehensive Metabolic Panel (11/05/19 18:36) Lipase (11/05/19 18:36) Ua Culture If Indicated (11/05/19 18:36) Urine Culture (11/05/19 18:30) Ketorolac Injection (Toradol Injection) (11/05/19 19:45) Ceftriaxone For Iv Use (Rocephin For I (11/05/19 19:45) Ondansetron Injection (Zofran Injectio (11/05/19 19:45) Ct Abd/Pelv W (Appendicitis) (11/05/19 19:42) Acute Abd Series (11/05/19 19:42) Iohexol Injection (Omnipaque 350 Mg/Ml 1 (11/05/19 20:30) Received Contrast (Hold Metformin- Contr (11/05/19 20:30) Ns (Ivpb) (Sodium Chloride 0.9% Ivpb Bag (11/05/19 20:30) Rx-Hydrocodone/Apap 5-325 Mg (Rx-Vicodin (11/05/19 21:15) Medications Given in ED Current Medications Medications Dose Ordered Sig/Héctor Route Start Time Stop Time Status Last Admin Dose Admin Ceftriaxone Sodium 1000 mg/ Sterile Water 10 ml @ 200 mls/hr ONCE ONCE IV 11/05/19 19:45 11/05/19 19:47 DC 11/05/19 20:03 200 MLS/HR Iohexol 100 ml ONCE ONCE IV 11/05/19 20:30 11/05/19 20:31 DC 11/05/19 20:42 100 ML Ketorolac Tromethamine 30 mg ONCE ONCE IVP 11/05/19 19:45 11/05/19 19:46 DC 11/05/19 20:01 30 MG Ondansetron HCl 4 mg ONCE ONCE IVP 11/05/19 19:45 11/05/19 19:46 DC 11/05/19 19:58 4 MG Sodium Chloride 100 ml ONCE ONCE IV 11/05/19 20:30 11/05/19 20:31 DC 11/05/19 20:42 100 ML Vital Signs/I&O 11/05/19 18:30 Temp 36.4 Pulse 80 Resp 20 B/P (MAP) 125/94 (104) Pulse Ox 100 O2 Delivery Room Air Progress Progress Note : Progress Note GIVEN ZOFRAN AND TORADOL, WITH IMPROVEMENT IN SYMPTOMS ALSO GIVEN ROCEPHIN FOR UTI Diagnostic Imaging Comments ABDOMEN XRAYS PER RADIOLOGIST REPORT AT 2016 IMPRESSION: 1. No identified acute abdominal radiographic abnormality. 2. No identified acute cardiopulmonary abnormality. CT ABDOMEN/PELVIS--PER RADIOLOGIST REPORT AT 2053 IMPRESSION: CT ABDOMEN AND PELVIS. 1. Right ovarian follicle with small amount of free pelvic fluid which may relate to physiologic findings. 2. No identified acute abnormality in the abdomen or pelvis. Reviewed: Reviewed by Nh Departure Communication (Admissions) 2056--SPOKE WITH DR. VIDAL, SHE WILL SEE PT IN OFFICE TOMORROW FOR RECHECK, WILL DEFER ANY RX'S FOR ANTIBIOTICS AND PAIN MEDICATION TO HER. PT ADVISED THAT IF SYMPTOMS WORSEN, SHE IS TO RETURN TO ER Impression Primary Impression: RLQ abdominal pain Additional Impressions: UTI (urinary tract infection) Follicular cyst of right ovary Disposition: HOME, SELF-CARE Condition: Improved Departure-Patient Inst. Referrals: GEOVANNA VIDAL DO (PCP) Primary Care Physician CADE DEAN DO (Family) Primary Care Physician Patient Instructions: Severe Abdominal Pain, Adult (DC), Ovarian Cyst (DC), Urinary Tract Infection, Adult (DC) Add. Discharge Instructions: CLEAR LIQUIDS TONIGHT, THEN NOTHING TO EAT OR DRINK AFTER MIDNIGHT IBUPROFEN NEEDED FOR PAIN FOLLOW UP WITH DR VIDAL TOMORROW FOR FURTHER CARE, RETURN TO ER IF SYMPTOMS WORSEN All discharge instructions reviewed with patient and/or family. Voiced u nderstanding. KARAN BOSS DO Nov 05, 2019 18:54
[2019-11-05 18:58] LABS: BASOPHILS % (AUTO) 0 % (0-10); EOSINOPHILS # (AUTO) 0.1 10^3/uL (0.0-0.3); EOSINOPHILS % (AUTO) 2 % (0-10); HEMATOCRIT 45 % (35-52); HEMOGLOBIN 15.2 G/DL (11.5-16.0); LYMPHOCYTES % (AUTO) 37 % (12-44); MEAN CORPUSCULAR HEMOGLOBIN 30 PG (25-34); MEAN CORPUSCULAR HGB CONC 34 G/DL (32-36); MEAN CORPUSCULAR VOLUME 87 FL (80-99); MEAN PLATELET VOLUME 8.8 FL (7.4-10.4); MONOCYTES # (AUTO) 0.8 X 10^3 (0.0-1.0); MONOCYTES % (AUTO) 10 % (0-12); NEUTROPHILS # (AUTO) 4.1 X 10^3 (1.8-7.8); NEUTROPHILS % (AUTO) 51 % (42-75); PLATELET COUNT 330 10^3/uL (130-400); WHITE BLOOD COUNT 8.1 10^3/uL (4.3-11.0)
[2019-11-05 19:02] LABS: BILIRUBIN,URINE NEGATIVE (NEGATIVE); CLARITY,URINE SL CLOUDY; COLOR,URINE YELLOW; GLUCOSE, URINE (UA) NEGATIVE (NEGATIVE); KETONES,URINE NEGATIVE (NEGATIVE); LEUKOCYTE ESTERASE ,URINE 2+ (NEGATIVE); NITRITE,URINE NEGATIVE (NEGATIVE); PROTEIN,URINE NEGATIVE (NEGATIVE)
[2019-11-05 19:07] LABS: ALBUMIN 4.3 GM/DL (3.2-4.5); CHLORIDE 103 MMOL/L (98-107); POTASSIUM 3.5 MMOL/L (3.6-5.0); SODIUM 140 MMOL/L (135-145)
[2019-11-05 19:08] LABS: AMYLASE 48 U/L (25-125); CALCIUM 8.8 MG/DL (8.5-10.1)
[2019-11-05 19:10] LABS: GLUCOSE 81 MG/DL (70-105); TOTAL PROTEIN 7.1 GM/DL (6.4-8.2)
[2019-11-05 19:11] LABS: BILIRUBIN,TOTAL 0.2 MG/DL (0.1-1.0); CARBON DIOXIDE 27 MMOL/L (21-32)
[2019-11-05 19:13] LABS: ALKALINE PHOSPHATASE 96 U/L (40-136); CREATININE SERUM 0.98 MG/DL (0.60-1.30); GFR ESTIMATED > 60
[2019-11-05 19:14] LABS: BUN/CREATININE RATIO 22
[2019-11-05 19:16] LABS: ALANINE AMINOTRANSFERASE 94 U/L (0-55)
[2019-11-05 19:17] LABS: LIPASE 51 U/L (8-78)
[2019-11-05 19:32] LABS: BACTERIA,URINE LARGE /HPF; RBC,URINE 0-2 /HPF; WBC,URINE 25-50 /HPF
[2019-11-05] MEDS ORDERED: ONDANSETRON 4 MG/2 ML (SDV) Z0FRAN IVP ONE (19:45)
[2019-11-05] MEDS ORDERED: KETOROLAC 30 MG/ML VIAL IVP ONE (19:45)
[2019-11-05] MEDS ORDERED: cefTRIAXone FOR IV USE 1,000 MG in WATER (STERILE) FOR INJECTION 10 ML IV ONE (19:45)
--- NOTE | 2019-11-05 19:48 | NUR ---
Pt's two necklaces placed on inside flap of purse.
--- NOTE | 2019-11-05 20:09 | Diagnostic Imaging Report ---
EXAMINATION: Abdominal radiographs, acute series. DATE: November 05, 2019. CLINICAL INDICATION: 44-year-old female, abdominal pain. COMPARISON: CT abdomen and pelvis January 11, 2017. COMMENTS: Heart size and mediastinal contours are unremarkable. There is no identified pneumothorax. There is no large pleural effusion. There is no identified focal airspace consolidation. There is no identified free intraperitoneal air. There are right upper quadrant surgical clips likely relating to prior cholecystectomy. There are gas-filled segments of large bowel which are not abnormally distended. There is a mild volume colonic stool. There is no identified abnormal radiodensity projecting over the expected positions of the kidneys or ureters or in right lower quadrant. There are pelvic calcifications likely relating to phleboliths. IMPRESSION: 1. No identified acute abdominal radiographic abnormality. 2. No identified acute cardiopulmonary abnormality. Dictated by: Dictated on workstation # [id number]
[2019-11-05] MEDS ORDERED: IOHEXOL 350 MG/ML 100 ML (OMNIPAQUE 350) VIAL IV ONE (20:30)
[2019-11-05] MEDS ORDERED: NS 100 ML (IVPB) BAG IV ONE (20:30)
[2019-11-05] MEDS ORDERED: HOLD METFORMIN - RECEIVED CONTRAST 20 ML VIAL IV SCH (20:30)
--- NOTE | 2019-11-05 20:52 | Diagnostic Imaging Report ---
PROCEDURE: CT abdomen and pelvis with contrast, rule out appendicitis. TECHNIQUE: Multiple contiguous axial images were obtained through the abdomen and pelvis after the administration of intravenous contrast. All CT scans use one or more of the following dose optimizing techniques: automated exposure control, MA and/or KvP adjustment based on patient size and exam type or iterative reconstruction. DATE: November 05, 2019. COMPARISON: Abdominal radiographs November 05, 2019. INDICATION: 44-year-old female, right-sided abdominal and flank pain. FINDINGS: There is mild dependent atelectasis in the lung bases. The heart is not enlarged. There is no pericardial effusion. The liver is unremarkable in size and contour. There is no identified liver lesion. The main, right, and left portal veins are patent. The patient is status post cholecystectomy. There is no biliary ductal dilation. Unremarkable appearance of the pancreas. The spleen is normal in size. The adrenal glands are unremarkable. Unremarkable appearance of the renal parenchyma. The urinary collecting systems are not distended. There is no identified renal or ureteral stone. There are pelvic calcifications consistent with phleboliths. The urinary bladder is unremarkable. There is a right ovarian follicle. There is a very small amount of free pelvic fluid. The intestinal tract is not distended. There is no evidence of acute appendicitis. There is no free intraperitoneal air. There is no drainable fluid collection. There is no identified abnormally enlarged lymph node in the abdomen or pelvis which meets CT size criteria for adenopathy. There is no identified acute bony abnormality. There is mild disc height loss at L5-S1. IMPRESSION: CT ABDOMEN AND PELVIS. 1. Right ovarian follicle with small amount of free pelvic fluid which may relate to physiologic findings. 2. No identified acute abnormality in the abdomen or pelvis. Dictated by: Dictated on workstation # [id number]
[2019-11-05] MEDS ORDERED: RX-HYDROCODONE/APAP 5/325 MG #4 TAB PK PO ONE (21:03)
[2019-11-05 21:11] VITALS: BP 117/97
[2019-11-05] MEDS ORDERED: RX-HYDROCODONE/APAP 5/325 MG #4 TAB PK PO PRN (21:15)
[2019-11-06] MEDS ORDERED: CEPH500T PO (11:57)
== END 2019-11-05 21:11 | disposition home or self-care (01) ==
LOC: EDUNIT# 17:59 → ER 18:01
DX: R10.31 Right lower quadrant pain (principal); N39.0 Urinary tract infection, site not specified; N83.01 Follicular cyst of right ovary; Z88.5 Allergy status to narcotic agent
CPT/HCPCS: 36415; 74022; 74177; 80053; 81000; 82150; 83690; 84703; 85025; 87088

== ENCOUNTER 2020-07-21 11:26 | Emergency (ER) | payer BC ==
[~2020-07-21] VITALS: Ht 170.2 cm; Wt 72.6 kg
[~2020-07-21 11:26] MED LIST changes: +CEPH500T PO
--- NOTE | 2020-07-21 11:51 | ED General ---
General Chief Complaint: General Problems/Pain Stated Complaint: COVID POSITIVE/ FEVER Nursing Triage Note: PT TO ROOM 10 WITH C/O FEVER, COUGH, HYPOTENSION. PT IS COVID POS. PT STATES SHE DOES NOT KNOW WHAT HER BP OR TEMP WAS. PT SENT OVER FROM URGENT CARE. PT STATES SHE WAS TOLD SHE WAS DEHYDRATED. PT STATES SHE HAS NOT HAD ANY TYLENOL OR IBUPROFEN TODAY. Nursing Sepsis Screen: Possible Severe Sepsis Risk Source of Information: Patient Exam Limitations: No Limitations History of Present Illness Date Seen by Provider: Jul 21, 2020 Time Seen by Provider: 11:48 Initial Comments ER by private vehicle with reports of hypotension. She is Covid positive, she became symptomatic on the , tested positive on Tuesday. She was given Decadron and Zithromax, denies improvement and is quite miserable. She reports dizziness, nausea, body aches and persistent cough. Unvaccinated against Covid. Timing/Duration: 1 Week, Constant Severity: Moderate Associated Systoms: Cough Allergies and Home Medications Allergies Coded Allergies: morphine (Unverified Allergy, Mild, 12/06/08) Home Medications Cefuroxime Axetil 500 Mg Tablet, 500 MG PO BID Prescribed by: GEOVANNA VIDAL on 01/12/17 1722 Cephalexin 500 Mg Tablet, 500 MG PO BID Prescribed by: ALBERT MOON on 11/06/19 1157 Ondansetron HCl 8 Mg Tablet, 8 MG PO Q6H Prescribed by: GEOVANNA VIDAL on 01/12/17 1721 Thyroid,Pork 130 Mg Tablet, 130 MG PO DAILY, (Reported) Patient Home Medication List Home Medication List Reviewed: Yes Review of Systems Review of Systems Constitutional: see HPI, chills, fever, malaise EENTM: see HPI Respiratory: see HPI, cough Cardiovascular: no symptoms reported Genitourinary: no symptoms reported Musculoskeletal: no symptoms reported Skin: no symptoms reported Psychiatric/Neurological: See HPI, Headache Hematologic/Lymphatic: No Symptoms Reported Immunological/Allergic: no symptoms reported Past [id number]-Mlycwy-Gewfub Hx Patient Social History Alcohol Use: Denies Use Smoking Status: Never a Smoker 2nd Hand Smoke Exposure: No Recent Infectious Disease Expo: No Recent Hopitalizations: No Seasonal Allergies Seasonal Allergies: No Past Medical History Surgeries: Yes (TUMMY TUCK/ABDOMINOPLASTY; ARM FX REPAIR) Adenoidectomy, Gallbladder, Orthopedic, Tonsillectomy, Tubal Ligation Respiratory: No Cardiac: No Neurological: No Reproductive Disorders: No CHEMICAL DEPENDENCY NURSE History: Tubal Ligation Genitourinary: Yes Kidney Infection, Bladder Infection Gastrointestinal: Yes (S/P CHOLECYCTECTOMY) Gall Bladder Disease Musculoskeletal: Yes (ARM FRACTURE REPAIR) Fractures Endocrine: Yes Hypothyroidsim HEENT: No Cancer: No Psychosocial: No Integumentary: No Blood Disorders: No Family Medical History No Pertinent Family Hx Physical Exam Vital Signs Vital Signs - First Documented 07/21/20 11:41 Temp 37.6 Pulse 102 Resp 17 B/P (MAP) 116/89 (98) O2 Delivery Room Air Capillary Refill : Less Than 3 Seconds Height, Weight, BMI Height: 5'7.00" Weight: 164lbs. 0.0oz. 74.529985gr; 25.00 BMI Method:Stated General Appearance: No Apparent Distress, WD/WN, Other (No distress, laying in bed. Lethargic. She is neither hypoxic nor hypotensive. She is 94% on room air here. Heart rate 96. Oxygen saturation 116/89. No accessory muscle use) Eyes: Bilateral Eye Normal Inspection, Bilateral Eye PERRL HEENT: PERRL/EOMI, TMs Normal Neck: Full Range of Motion, Normal Inspection Respiratory: No Accessory Muscle Use, No Respiratory Distress Cardiovascular: Regular Rate, Rhythm, Normal Peripheral Pulses Gastrointestinal: Normal Bowel Sounds, Non Tender, Soft Extremity: Normal Capillary Refill, Normal Inspection Neurologic/Psychiatric: Alert, Oriented x3 Skin: Normal Color, Warm/Dry Progress/Results/Core Measures Suspected Sepsis Recent Fever Within 48 Hours: Yes Infection Criteria Present: Documented Infection New/Unexplained Altered Menta: No Sepsis Screen: Possible Severe Sepsis Risk SIRS Temperature: Pulse: 102 Respiratory Rate: 17 Laboratory Tests 07/21/20 12:00: White Blood Count 7.0 Blood Pressure 116 /89 Mean: 98 Laboratory Tests 07/21/20 12:00: Creatinine 1.21, Platelet Count 259, Total Bilirubin 0.5 Results/Orders Lab Results Laboratory Tests Test 07/21/20 12:00 07/21/20 12:23 Range/Units White Blood Count 7.0 4.3-11.0 10^3/uL Red Blood Count 5.63 H 3.80-5.11 10^6/uL Hemoglobin 16.4 H 11.5-16.0 g/dL Hematocrit 48 35-52 % Mean Corpuscular Volume 85 80-99 fL Mean Corpuscular Hemoglobin 29 25-34 pg Mean Corpuscular Hemoglobin Concent 34 32-36 g/dL Red Cell Distribution Width 11.9 10.0-14.5 % Platelet Count 259 130-400 10^3/uL Mean Platelet Volume 8.4 L 9.0-12.2 fL Immature Granulocyte % (Auto) 0 % Neutrophils (%) (Auto) 62 42-75 % Lymphocytes (%) (Auto) 28 12-44 % Monocytes (%) (Auto) 10 0-12 % Eosinophils (%) (Auto) 0 0-10 % Basophils (%) (Auto) 0 0-10 % Neutrophils # (Auto) 4.4 1.8-7.8 X 10^3 Lymphocytes # (Auto) 1.9 1.0-4.0 X 10^3 Monocytes # (Auto) 0.7 0.0-1.0 X 10^3 Eosinophils # (Auto) 0.0 0.0-0.3 10^3/uL Basophils # (Auto) 0.0 0.0-0.1 10^3/uL Immature Granulocyte # (Auto) 0.0 0.0-0.1 10^3/uL Sodium Level 139 135-145 MMOL/L Potassium Level 3.0 L 3.6-5.0 MMOL/L Chloride Level 97 L 98-107 MMOL/L Carbon Dioxide Level 30 21-32 MMOL/L Anion Gap 12 5-14 MMOL/L Blood Urea Nitrogen 14 7-18 MG/DL Creatinine 1.21 0.60-1.30 MG/DL Estimat Glomerular Filtration Rate 49 BUN/Creatinine Ratio 12 Glucose Level 86 70-105 MG/DL Calcium Level 8.8 8.5-10.1 MG/DL Corrected Calcium 8.8 8.5-10.1 MG/DL Total Bilirubin 0.5 0.1-1.0 MG/DL Aspartate Amino Transf (AST/SGOT) 62 H 5-34 U/L Alanine Aminotransferase (ALT/SGPT) 298 H 0-55 U/L Alkaline Phosphatase 154 H 40-136 U/L C-Reactive Protein High Sensitivity 1.96 H 0.00-0.50 MG/DL Total Protein 6.9 6.4-8.2 GM/DL Albumin 4.0 3.2-4.5 GM/DL Procalcitonin 0.04 <0.10 NG/ML Serum Test, Qualitative NEGATIVE NEGATIVE Acetaminophen Level < 10 L 10-30 UG/ML D-Dimer 0.48 0.00-0.49 UG/ML My Orders Orders - [facility] [employer] Cbc With Automated Diff (07/21/20 11:46) Comprehensive Metabolic Panel (07/21/20 11:46) Hs C Reactive Protein (07/21/20 11:46) Hcg,Qualitative Serum (07/21/20 11:46) Fibrin Degradation Products (07/21/20 11:46) Chest 1 View, Ap/Pa Only (07/21/20 11:46) Ed Iv/Invasive Line Start (07/21/20 11:46) Ns Iv 500 Ml (Sodium Chloride 0.9%) (07/21/20 12:00) Ketorolac Injection (Toradol Injection) (07/21/20 12:00) Meclizine Tablet (Antivert Tablet) (07/21/20 12:00) Ondansetron Injection (Zofran Injectio (07/21/20 12:00) Procalcitonin (Pct) (07/21/20 11:52) Ns Iv 500 Ml (Sodium Chloride 0.9%) (07/21/20 12:45) Potassium Chloride (Tablet) (K Dur Table (07/21/20 12:45) Acetaminophen (07/21/20 13:20) Medications Given in ED Current Medications Medications Dose Ordered Sig/Héctor Route Start Time Stop Time Status Last Admin Dose Admin Ketorolac Tromethamine 15 mg ONCE ONCE IVP 07/21/20 12:00 07/21/20 12:01 DC 07/21/20 11:54 15 MG Meclizine HCl 25 mg ONCE ONCE PO 07/21/20 12:00 07/21/20 12:01 DC 07/21/20 11:54 25 MG Ondansetron HCl 8 mg ONCE ONCE IVP 07/21/20 12:00 07/21/20 12:01 DC 07/21/20 11:54 8 MG Potassium Chloride 40 meq ONCE ONCE PO 07/21/20 12:45 07/21/20 12:46 DC 07/21/20 12:48 40 MEQ Vital Signs/I&O 07/21/20 11:41 Temp 37.6 Pulse 102 Resp 17 B/P (MAP) 116/89 (98) O2 Delivery Room Air Capillary Refill : Less Than 3 Seconds Blood Pressure Mean: 98 Departure Communication (Admissions) 1319-Oxygen saturation remains 96 to 97% on room air heart rate 81 blood pressure 114 systolic. Labs are unremarkable. Discussed with her the elevated liver enzymes and the need for follow-up. She states has been taking a lot of Tylenol PM and NyQuil. Ill add an apap level. No indication for admission nor does she meet criteria for monoclonal antibody infusion. Will dc to home, return precautions if APAP level WNL. Impression Primary Impression: COVID-19 Additional Impression: Elevated LFTs Disposition: HOME, SELF-CARE Condition: Stable Departure-Patient Inst. Decision time for Depature: 13:21 Referrals: GEOVANNA VIDAL DO (PCP) Primary Care Physician CADE DEAN DO (Family) Primary Care Physician Patient Instructions: COVID-19 ED Add. Discharge Instructions: 1. Avoid Tylenol (acetaminophen) products. Use Motrin/ibuprofen instead. Follow-up for repeat liver enzymes and reevaluation next week. All discharge instructions reviewed with patient and/or family. Voiced understanding. Copy Copies To 1: CADE DEAN PETER J APRN Jul 21, 2020 11:50
[2020-07-21] MEDS ORDERED: NS IV 500 ML 500 ML IV SCH ×2 (12:00→12:45)
[2020-07-21] MEDS ORDERED: ONDANSETRON 4 MG/2 ML (SDV) Z0FRAN IVP ONE (12:00)
[2020-07-21] MEDS ORDERED: MECLIZINE 25 MG (ANTIVERT) TAB PO ONE (12:00)
[2020-07-21] MEDS ORDERED: KETOROLAC 30 MG/ML VIAL IVP ONE (12:00)
[2020-07-21 12:08] LABS: BASOPHILS % (AUTO) 0 % (0-10); EOSINOPHILS % (AUTO) 0 % (0-10); HEMATOCRIT 48 % (35-52); HEMOGLOBIN 16.4 g/dL (11.5-16.0); LYMPHOCYTES # (AUTO) 1.9 X 10^3 (1.0-4.0); LYMPHOCYTES % (AUTO) 28 % (12-44); MEAN CORPUSCULAR HEMOGLOBIN 29 pg (25-34); MEAN CORPUSCULAR HGB CONC 34 g/dL (32-36); MEAN CORPUSCULAR VOLUME 85 fL (80-99); MEAN PLATELET VOLUME 8.4 fL (9.0-12.2); MONOCYTES # (AUTO) 0.7 X 10^3 (0.0-1.0); MONOCYTES % (AUTO) 10 % (0-12); NEUTROPHILS # (AUTO) 4.4 X 10^3 (1.8-7.8); NEUTROPHILS % (AUTO) 62 % (42-75); PLATELET COUNT 259 10^3/uL (130-400)
[2020-07-21 12:23] LABS: CALCIUM 8.8 MG/DL (8.5-10.1)
[2020-07-21 12:24] LABS: TOTAL PROTEIN 6.9 GM/DL (6.4-8.2)
[2020-07-21 12:26] LABS: BILIRUBIN,TOTAL 0.5 MG/DL (0.1-1.0)
[2020-07-21 12:28] LABS: CREATININE SERUM 1.21 MG/DL (0.60-1.30)
--- NOTE | 2020-07-21 12:44 | Diagnostic Imaging Report ---
INDICATION: Cough, fever, and hypotension. COMPARISON: Comparison made with prior examination from 11/05/2019. FINDINGS: The heart size, mediastinal configuration, and pulmonary vascularity are within normal limits. There is no pleural effusion, pneumothorax, or pneumonia. The osseous structures are unremarkable. IMPRESSION: No acute cardiopulmonary abnormality. Dictated by: Dictated on workstation # [id number]
[2020-07-21] MEDS ORDERED: KCL 20 MEQ TAB (K-DUR) PO ONE (12:45)
[2020-07-21 14:04] VITALS: BP 121/68
== END 2020-07-21 14:04 | disposition home or self-care (01) ==
LOC: EDUNIT# 11:26 → ER 11:29
DX: U07.1 COVID-19 (principal); R79.89 Other specified abnormal findings of blood chemistry; Z88.5 Allergy status to narcotic agent
CPT/HCPCS: 71045; 80053; 84145; 84703; 85025; 85379; 86141; G0480; 36415; 80329